=== PATIENT | female | born 1950 ===

== ENCOUNTER 2019-01-01 21:35 | Emergency (ER) | payer OTHER ==
[~2019-01-01] VITALS: Ht 162.6 cm; Wt 56.2 kg
[~2019-01-01 21:35] MED LIST: DOLOGEN CAPLET1 TAB PO; FIORICET 50-301 EACH PO
== END 2019-01-02 00:35 | disposition home or self-care (01) ==
LOC: ER 21:35
DX: J06.9 Acute upper respiratory infection, unspecified (principal); B34.9 Viral infection, unspecified

== ENCOUNTER 2019-08-15 16:19 | Emergency (ER) | payer OTHER ==
[~2019-08-15] VITALS: Ht 165.1 cm; Wt 54.4 kg
[2019-08-15] MEDS ORDERED: DOLOGEN CAPLET1 EACH PO (18:38)
[2019-08-15] MEDS ORDERED: XOFLUZA40 MG PO (18:38)
[2019-08-15] MEDS ORDERED: TUSNEL LIQUID178 ML PO (18:38)
== END 2019-08-15 18:45 | disposition home or self-care (01) ==
LOC: ER 16:19
DX: J11.1 Influenza due to unidentified influenza virus with other respiratory manifestations (principal)